=== PATIENT | female | born 1995 | race African-American/Black ===

== ENCOUNTER 2024-12-07 11:35 | Outpatient (CLI) | payer MEDICAID | END 2024-12-07 11:36 | disposition home or self-care (01) | LOC: ULT 11:35 | PROVIDERS: ATTEND Family Medicine | DX: Z34.02 Encounter for supervision of normal first pregnancy, second trimester (principal); D25.9 Leiomyoma of uterus, unspecified; Z3A.21 21 weeks gestation of pregnancy | CPT/HCPCS: 76805 ==